=== PATIENT | female | born 1960 | race Caucasian/White ===

== ENCOUNTER 2017-04-11 15:39 | Observation (INO) ==
[2017-04-11] MEDS ORDERED: Albuterol 2.5 MG/3 ML NEBULIZER IH ONE (15:52)
[2017-04-11] MEDS ORDERED: methylPREDNISolone 125 MG/2 ML VIAL IVP ONE (15:52)
[2017-04-11] MEDS ORDERED: Ipratropium/Albuterol Neb 3 ML IH ONE (15:52)
--- NOTE | 2017-04-11 15:56 | Emergency Department Note ---
Disposition Clinical Impression: COPD exacerbation Pneumonia Qualifiers: Pneumonia type: due to unspecified organism Laterality: left Lung location: lower lobe of lung Qualified Code(s): J18.1 - Lobar pneumonia, unspecified organism Disposition: Admitted As Inpatient Condition: Good Referrals: Jack Marley DO [Primary Care Provider] - Forms: ED Satisfaction Letter Time of Disposition: 18:13 SOB HPI - General Chief Complaint: ED Shortness of Breath/Dyspnea Stated Complaint: SOB Time Seen by Provider: 04/11/17 15:50 Source: patient Mode of arrival: wheelchair Limitations: no limitations Nursing Notes Reviewed: Yes Vital Signs Reviewed: Yes - History of Present Illness 57-year-old white female with a one-week history of increasing weakness and difficulty breathing. She has some aching in her low back. She has a dry nonproductive cough. She has felt feverish and chilled at home, but not documented. Her liters of oxygen at home. She uses a nebulizer, and last used it at 7:30 this morning. She went to her primary care physician's office who sent her over here for evaluation. She states she was documented as having a fever and her primary care physician's office, she does not know what her temperature was. Pt Subjective Complaint: shortness of breath, cough Onset (ago): week(s) (1) Context: recent illness Severity: moderate Consistency/Duration: constant Improves with: oxygen, rest Worsens with: lying flat, movement, coughing Known history of: COPD Associated symptoms: Reports: fever, cough, wheezing, nausea/vomiting (Nausea, no vomiting.), other (Headache). Denies: sputum production Treatment prior to arrival: oxygen, bronchodilator Cough present: Yes Cough Description: Involuntary Cough Frequency: Intermittent Sputum production: No - Related Data Home oxygen amount: 3 liters Home Medications Medication Instructions Recorded Confirmed Aspirin [Lo-Dose Aspirin EC] 81 mg PO DAILY 04/11/17 04/11/17 Atorvastatin [Lipitor] 40 mg PO HS 04/11/17 04/11/17 Gabapentin [Neurontin] 1,000 mg PO TID 04/11/17 04/11/17 Glimepiride [Amaryl] 4 mg PO BID 04/11/17 04/11/17 Metformin HCl [Metformin HCl ER] 1,000 mg PO BID 04/11/17 04/11/17 Allergies Allergy/AdvReac Type Severity Reaction Status Date / Time No Known Allergies Allergy Verified 04/11/17 15:43 All systems ED: reviewed and negative except as stated. Constitutional: Reports: fever, chills Eyes: Denies: eye discharge ENT ED: Denies: ear pain, throat pain Cardiovascular: Reports: chest pain (With coughing.). Denies: palpitations Respiratory: Reports: cough, dyspnea, wheezes. Denies: sputum production Gastrointestinal: Denies: abdominal pain, nausea, vomiting, diarrhea Genitourinary: Denies: urgency, dysuria, frequency Musculoskeletal: Reports: back pain (Low back bilaterally) Neurological: Reports: headache. Denies: weakness, numbness, paresthesias Past Medical History - Past Medical History Medical history: Reports: COPD, diabetes, GI bleed, hypertension Psychiatric history: Reports: no psych history - Social History Smoking Status: Former smoker Smokeless Tobacco Status: No Alcohol use: Reports: none Drug use: Reports: none Physical Exam - General Limitations: no limitations General appearance: alert, in no apparent distress - Head Head exam: atraumatic, normocephalic - Eye Eye exam: Present: PERRL, EOMI. Absent: scleral icterus, conjunctival injection - ENT ENT exam: normal oropharynx, mucous membranes moist, TM's normal bilaterally - Neck Neck exam: Present: normal inspection, full ROM, trachea midline. Absent: tenderness, lymphadenopathy - Respiratory Respiratory exam: Present: wheezes (Mild bilateral expiratory), prolonged expiratory phase, other (Decreased breath sounds in the bases and mid lung alonzo bilaterally). Absent: respiratory distress, accessory muscle use - Cardiovascular Cardiovascular exam: Present: regular rate, tachycardia. Absent: systolic murmur, diastolic murmur, gallop - Abdominal Exam Abdominal exam: Present: soft, Non-Tender, normal bowel sounds. Absent: organomegaly, mass - Extremities Exam Extremities exam: Present: normal inspection, full ROM, normal capillary refill. Absent: pedal edema, calf tenderness - Neurological Exam Neurological exam: Present: alert, oriented X3. Absent: motor sensory deficit - Psychiatric Psychiatric exam: Present: normal affect, normal mood - Skin Skin exam: Present: warm, dry, intact, normal color. Absent: cyanosis, diaphoresis Course - Reevaluation(s) Reevaluation #1: Discussed with Dr. Newberry. He accepts the patient for admission. Time: 18:13 Vital Signs Temperature 101.8 F H 04/11/17 15:44 Pulse Rate 114 04/11/17 15:44 Respiratory Rate 20 04/11/17 15:44 Blood Pressure 121/71 04/11/17 15:44 O2 Sat by Pulse Oximetry 91 04/11/17 15:44 Temperature 101.8 F H 04/11/17 15:44 Pulse Rate 108 04/11/17 17:10 Respiratory Rate 18 04/11/17 17:10 Blood Pressure 120/66 04/11/17 17:10 O2 Sat by Pulse Oximetry 90 04/11/17 17:10 Oxygen Delivery Oxygen Delivery Nasal Cannula Shortness of Breath/Dyspnea - [facility] Narrative Medical decision making narrative: Radiographically she has some left basilar changes which would be consistent with pneumonia based on her history of fever, cough, difficulty breathing. Blood cultures are been obtained. Her lactic acid is not elevated. IV Rocephin and azithromycin have been ordered. Her O2 saturations are around 90% on 3 L. She will require hospitalization. I will page Dr. Newberry and speak with him regarding the admission. - Differential Diagnosis Likely: acute exacerbation of chronic obstructive airways disease, congestive heart failure, pneumonia, asthma with exacerbation, pneumothorax, arrhythmia - Lab Data Lab results reviewed: Yes I reviewed the patient's lab results. Result diagrams: 04/11/17 16:20 04/11/17 16:20 Lab Results 04/11/17 04/11/17 04/11/17 Range/Units 16:20 16:20 16:20 WBC 9.6 (4.3-11.1) K/mcL RBC 4.35 (3.82-4.97) M/mcL Hgb 11.8 (11.5-15.4) g/dL Hct 39.7 (35.3-44.9) % MCV 91.3 (83.0-100.0) fL MCH 27.1 L (28.0-33.3) pg MCHC 29.7 L (31.6-35.5) g/dL RDW 17.6 H (11.5-14.5) % Plt Count 232 (140-400) K/mcL MPV 10.1 (9.4-12.4) fL Immature Gran % 0.7 (0-4) % Seg Neutrophils % 80.9 % Lymphocytes % 8.3 % Monocytes % 9.6 % Eosinophils % 0.1 % Basophils % 0.4 % Neutrophils # 7.8 (1.6-8.9) K/mcL Lymphocytes # 0.8 (0.6-4.6) K/mcL Monocytes # 0.9 (0.0-1.3) K/mcL Eosinophils # 0.0 (0.0-0.6) K/mcL Basophils # 0.0 (0.0-0.2) K/mcL VBG Lactic Acid (0.5-2.2) mmol/L Sodium 138 (136-145) mEq/L Potassium 4.0 (3.5-4.5) mEq/L Chloride 98 (98-109) mEq/L Carbon Dioxide 28 (19-29) mEq/L BUN 15 (7-20) mg/dL Creatinine 0.78 (0.57-1.11) mg/dL Est GFR ( Amer) > 60 (> 60) Est GFR (Non-Af Amer) > 60 (> 60) BUN/Creatinine Ratio 19 (6-26) Glucose 228 H (70-99) mg/dL Calculated Osmolality 294 (280-300) Calcium 9.0 (8.6-10.8) mg/dL Total Bilirubin 0.7 (0.2-1.2) mg/dL AST 22 (5-34) Units/L ALT 25 (0-55) Units/L Alkaline Phosphatase 113 (38-126) Units/L Troponin I 0.01 (0-0.03) ng/mL B-Natriuretic Peptide (0-100) pg/mL Serum Total Protein 7.2 (6.0-8.3) g/dL Albumin 3.1 L (3.5-5.0) g/dL Globulin 4.1 H (2.4-3.5) g/dL Albumin/Globulin Ratio 0.8 L (1.1-2.2) 04/11/17 04/11/17 Range/Units 16:20 17:03 WBC (4.3-11.1) K/mcL RBC (3.82-4.97) M/mcL Hgb (11.5-15.4) g/dL Hct (35.3-44.9) % MCV (83.0-100.0) fL MCH (28.0-33.3) pg MCHC (31.6-35.5) g/dL RDW (11.5-14.5) % Plt Count (140-400) K/mcL MPV (9.4-12.4) fL Immature Gran % (0-4) % Seg Neutrophils % % Lymphocytes % % Monocytes % % Eosinophils % % Basophils % % Neutrophils # (1.6-8.9) K/mcL Lymphocytes # (0.6-4.6) K/mcL Monocytes # (0.0-1.3) K/mcL Eosinophils # (0.0-0.6) K/mcL Basophils # (0.0-0.2) K/mcL VBG Lactic Acid 1.2 (0.5-2.2) mmol/L Sodium (136-145) mEq/L Potassium (3.5-4.5) mEq/L Chloride (98-109) mEq/L Carbon Dioxide (19-29) mEq/L BUN (7-20) mg/dL Creatinine (0.57-1.11) mg/dL Est GFR ( Amer) (> 60) Est GFR (Non-Af Amer) (> 60) BUN/Creatinine Ratio (6-26) Glucose (70-99) mg/dL Calculated Osmolality (280-300) Calcium (8.6-10.8) mg/dL Total Bilirubin (0.2-1.2) mg/dL AST (5-34) Units/L ALT (0-55) Units/L Alkaline Phosphatase (38-126) Units/L Troponin I (0-0.03) ng/mL B-Natriuretic Peptide 31 (0-100) pg/mL Serum Total Protein (6.0-8.3) g/dL Albumin (3.5-5.0) g/dL Globulin (2.4-3.5) g/dL Albumin/Globulin Ratio (1.1-2.2) - Radiology Data Radiology results reviewed: Yes I reviewed the patient's radiology results. ITS Impressions Chest X-Ray 04/11/17 15:52 IMPRESSION: Limited examination. Left basilar opacity may be secondary to atelectasis, pneumonia, a pleural effusion or overlying soft tissue artifact. D/ / Marcio Nunn MD / Marcio Nunn MD Interpreting Provider: Marcio Nunn MD - EKG Data EKG attestation: Yes I reviewed and interpreted this EKG.
[2017-04-11 16:34] LABS: Basophils % 0.4 %; Eosinophils % 0.1 %; Hematocrit 39.7 % (35.3-44.9); Hemoglobin 11.8 g/dL (11.5-15.4); Immature Granulocytes % 0.7 % (0-4); Lymphocytes # 0.8 K/mcL (0.6-4.6); Lymphocytes % 8.3 %; Mean Corpuscular HGB Conc 29.7 g/dL (31.6-35.5); Mean Corpuscular Hemoglobin 27.1 pg (28.0-33.3); Mean Corpuscular Volume 91.3 fL (83.0-100.0); Mean Platelet Volume 10.1 fL (9.4-12.4); Monocytes # 0.9 K/mcL (0.0-1.3); Monocytes % 9.6 %; Neutrophils # 7.8 K/mcL (1.6-8.9); Platelet Count 232 K/mcL (140-400); Red Blood Count 4.35 M/mcL (3.82-4.97); Red Cell Distribution Width 17.6 % (11.5-14.5); Segmented Neutrophils % 80.9 %
[2017-04-11 16:53] LABS: Alanine Aminotransferase 25 Units/L (0-55); Albumin 3.1 g/dL (3.5-5.0); Albumin/Globulin Ratio 0.8 (1.1-2.2); Alkaline Phosphatase 113 Units/L (38-126); Aspartate Amino Transferase 22 Units/L (5-34); BUN/Creatinine Ratio 19 (6-26); Bilirubin,Total 0.7 mg/dL (0.2-1.2); Blood Urea Nitrogen 15 mg/dL (7-20); Carbon Dioxide 28 mEq/L (19-29); Chloride 98 mEq/L (98-109); Globulin 4.1 g/dL (2.4-3.5); Glucose 228 mg/dL (70-99); Osmolality,Calculated 294 (280-300); Sodium 138 mEq/L (136-145); Total Protein 7.2 g/dL (6.0-8.3); eGFR For African Americans > 60 (> 60); eGFR For Non-African Americans > 60 (> 60)
[2017-04-11] MEDS ORDERED: Azithromycin 500 MG in D5% in Water 250 ML IVPB ONE (17:38)
[2017-04-11] MEDS ORDERED: Naloxone 0.4 MG/ML INJ IVP PRN (20:27)
[2017-04-11] MEDS ORDERED: Dextrose Gel 15 GM PO PRN ×2 (20:28)
[2017-04-11] MEDS ORDERED: D5% in Water 1,000 ML IVC PRN (20:28)
[2017-04-11] MEDS ORDERED: *HR* Dextrose 50 % in Water (Syg) 50 ML SYRINGE IVP PRN (20:28)
[2017-04-11] MEDS ORDERED: NON-FORMULARY MEDICATION 1 EACH EACH (Metformin Hcl [Metformin Hcl Er] 1,000 MG) PO SCH (21:00)
[2017-04-11] MEDS: Insulin LISPRO 300 UNITS/3 ML VIAL SQ SCH ×2 (21:31→21:33)
[2017-04-11] MEDS: Gabapentin 300 MG CAPSULE PO SCH (21:32)
[2017-04-11] MEDS: Ipratropium/Albuterol Neb 3 ML IH SCH ×2 (22:19→22:21)
[2017-04-11] MEDS: traMADol 50 MG TABLET PO SCH (22:51)
[2017-04-12] MEDS: methylPREDNISolone 125 MG/2 ML VIAL IVP SCH ×2 (01:13→09:32)
[2017-04-12] MEDS: Ipratropium/Albuterol Neb 3 ML IH SCH ×3 (03:50→11:20)
[2017-04-12] MEDS ORDERED: *HR* Glimepiride 2 MG TABLET PO SCH (07:30)
[2017-04-12] MEDS: Insulin LISPRO 300 UNITS/3 ML VIAL SQ SCH ×2 (07:38→12:26)
[2017-04-12] MEDS ORDERED: *HR* Metformin 500 MG TABLET PO SCH (08:00)
[2017-04-12] MEDS ORDERED: Aspirin Enteric Coated 81 MG Tablet PO SCH (09:00)
[2017-04-12] MEDS: Gabapentin 300 MG CAPSULE PO SCH (09:30)
[2017-04-12] MEDS: traMADol 50 MG TABLET PO SCH (09:31)
[2017-04-12 10:40] VITALS: BP 122/82
--- NOTE | 2017-04-12 12:40 | Internal Med History&Physical ---
Date of Encounter: 04/12/17 Time of Encounter: 12:10 Assessment and Plan (1) Pneumonia Current visit: Yes Status: Acute She has been started on Rocephin and Zithromax through emergency room. Solu- Medrol was also ordered. Qualifiers: Pneumonia type: due to unspecified organism Laterality: left Lung location: lower lobe of lung Qualified Code(s): J18.1 - Lobar pneumonia, unspecified organism (2) COPD exacerbation Current visit: Yes Status: Acute Pneumonia treatment as per above. She states her breathing is improved now. Internal Medicine - H&P: HPI Chief complaint: Dyspnea Admitted From: Home Plans for Post Hospital Care: Home History of present illness: Ms. Arvizu is a 57 year old female came to emergency room stating she had dyspnea with dry cough, headache and weakness increasing over the preceding 24- 48 hours. She was seen at her PCP office and was directed to come to emergency room. She was evaluated and felt to have exacerbation of COPD and was admitted to [facility] floor for ongoing care needs. She states she smoked from age [age]. She has a diagnosis COPD and wears oxygen at home 02/05. She has declined DEBBIE workup in the past. She states her breathing has improved and she feels back to her baseline and wishes to be discharged home. Past Med Surg Social Fam HX - Past Medical History Medical history: COPD, diabetes, GI bleed, hypertension Psychiatric history: no psych history - Past Surgical History Surgical History: - Social History Smoking Status: Former smoker Smokeless Tobacco Status: No Alcohol use: none Drug use: none Internal Medicine - H&P: Meds Aspirin 81 mg PO DAILY 04/11/17 [History] Atorvastatin [Lipitor] 80 mg PO HS 04/11/17 [History] Empagliflozin [Jardiance] 25 mg PO QAM 04/11/17 [History] Gabapentin [Neurontin] 600 mg PO TID 04/11/17 [History] Garcinia Cambogia 1 cap PO BID 04/11/17 [History] Glimepiride [Amaryl] 4 mg PO BID 04/11/17 [History] Losartan [Cozaar] 50 mg PO DAILY 04/11/17 [History] Ondansetron [Zofran] 8 mg PO Q8HR 04/11/17 [History] Saxagliptin HCl [Onglyza] 5 mg PO QAM 04/11/17 [History] Tramadol HCl [Ultram] 50 mg PO BID 04/11/17 [History] metFORMIN 1,000 mg PO BID 04/11/17 [History] Allergies No Known Allergies Allergy (Verified 04/11/17 15:43) All Systems PM: A 10-system review of systems was performed and is negative for pertinent findings except as documented above in the HPI. Review of systems: Gen.: She states her weight is been stable the past few months Cardiovascular: She has history of hypertension but does not take medication. She denies WI heart failure angina DVT or pulmonary embolus Respiratory: As per history of present illness GI: She denies disorders of her liver gallbladder or exocrine pancreas : She denies hematuria dysuria or kidney stones Neurologic: She denies large distribution strokes or seizures Endocrine: She was diagnosed with DM 2 approximate 2006. 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 She denies gout or other bone joint or muscle disorders. - Constitutional Vitals: Temp Pulse Resp BP Pulse Ox 97.6 F 80 17 122/82 93 04/12/17 10:39 04/12/17 10:39 04/12/17 11:23 04/12/17 10:39 04/12/17 11:23 Exam: Gen.: She is a well-developed overweight female who appears in no acute distress at present time HEENT: Head is atraumatic and normocephalic. Eyes: EOMI. There is no scleral icterus. Mouth: Mucosa is moist. Neck: Supple and nontender. There is no thyromegaly or adenopathy noted. Heart: Regular without murmurs gallops or ectopics Lungs: No wheezes or crackles are heard. Abdomen: Soft and nontender. No masses or guarding are noted. Extremities: There is no cyanosis edema or clubbing noted. Dorsalis pedis and posttibial pulses are 1-2 over 2 bilaterally. Neurologic: Mental status: She is talkative and a good historian. Cranial nerves: Smile is symmetric. Forehead wrinkles bilaterally. Tongue protrudes midline. EOMI. Motor: There is no pronator drift. Cerebellar: Finger to nose is intact bilaterally. Skin: Warm and dry Internal Med - H&P Results - Labs CBC & Chem 7: 04/11/17 16:20 04/11/17 16:20
--- NOTE | 2017-04-12 12:56 | Discharge Summary ---
Date of Encounter: 04/12/17 Time of Encounter: 12:10 - Discharge Diagnosis (1) Pneumonia Priority: Primary Status: Acute Qualifiers: Pneumonia type: due to unspecified organism Laterality: left Lung location: lower lobe of lung Qualified Code(s): J18.1 - Lobar pneumonia, unspecified organism (2) COPD exacerbation Priority: Secondary Status: Acute - Discharge Medications Prescriptions: Cefuroxime PO [Ceftin] 500 mg PO Q12HR #6 tablet Azithromycin [Zithromax] 250 mg PO DAILY #3 tablet Lactobacillus [Culturelle] 1 each PO BID #6 cap.sprink Home Medications: Aspirin 81 mg PO DAILY 04/11/17 [History] Atorvastatin [Lipitor] 80 mg PO HS 04/11/17 [History] Empagliflozin [Jardiance] 25 mg PO QAM 04/11/17 [History] Gabapentin [Neurontin] 600 mg PO TID 04/11/17 [History] Garcinia Cambogia 1 cap PO BID 04/11/17 [History] Glimepiride [Amaryl] 4 mg PO BID 04/11/17 [History] Losartan [Cozaar] 50 mg PO DAILY 04/11/17 [History] Ondansetron [Zofran] 8 mg PO Q8HR 04/11/17 [History] Saxagliptin HCl [Onglyza] 5 mg PO QAM 04/11/17 [History] Tramadol HCl [Ultram] 50 mg PO BID 04/11/17 [History] metFORMIN 1,000 mg PO BID 04/11/17 [History] Azithromycin [Zithromax] 250 mg PO DAILY #3 tablet 04/12/17 [Rx] Cefuroxime PO [Ceftin] 500 mg PO Q12HR #6 tablet 04/12/17 [Rx] Lactobacillus [Culturelle] 1 each PO BID #6 cap.sprink 04/12/17 [Rx] Allergies/Adverse Reactions: Allergies No Known Allergies Allergy (Verified 04/11/17 15:43) Date of admission: 04/11/17 18:46 Primary care physician: Jack Marley DO Consults: 04/11/17 23:06 Consult to Nutrition [CONS] Routine Comment: Consulting Provider: NUTRITION Reason for Dietary Consult: MST Score - Patient Status Disposition: Home, Self-Care Condition: Good Functional capacity at discharge: independent ambulation Overall status at discharge: patient is progressing back to baseline - Discharge Instructions Follow Up With: Jack Marley DO [Primary Care Provider] - 1 week - Diet and Activity Activity: resume usual activities as tolerated Diet: advance to your usual diet Hospital course: Ms. Arvizu is a 57 year old female who came to emergency room stating she had dyspnea with dry cough, headache and weakness increasing over the preceding 24- 48 hours. She was seen at her PCP office and was directed to come to emergency room. She was evaluated and felt to have exacerbation of COPD and was admitted to [facility] for ongoing care needs. Initial orders written by the emergency room physician. I saw her on April 12 and performed the history physical discharge. Maintained afebrile during her hospital stay. When I saw her she felt back to baseline and wished to be discharged home which I felt was Fidel. She will follow with her PCP within one week. She will continue with antibiotic probiotic for 3 additional days at discharge. - Time Spent with Patient Total time spent providing and/or coordinating discharge services: - Constitutional Vitals: Temp Pulse Resp BP Pulse Ox 97.6 F 80 17 122/82 93 04/12/17 10:39 04/12/17 10:39 04/12/17 11:23 04/12/17 10:39 04/12/17 11:23
[2017-04-12] MEDS ORDERED: Azithromycin 500 MG in D5% in Water 250 ML IVPB SCH (19:00)
--- NOTE | 2017-04-13 14:16 | Electrocardiograph Report ---
[address] [place], [place] [address] Test Date: 2017-04-11 Pat Name: Sandi Arvizu Department: [id number] Room: [facility] Gender: F [place] Applier: Lucian : 1960 Requested By: Antoni Leal Order Number: [id number] Reading MD: Castro Morales MD Measurements Intervals [place] Rate: 116 P: 55 TN: 156 QRS: 79 QRSD: 133 T: 38 QT: 325 QTc: 394 Interpretive Statements SINUS TACHYCARDIA LEFT ATRIAL ENLARGEMENT INTRAVENTRICULAR CONDUCTION DELAY INFERIOR MYOCARDIAL INFARCTION, PROBABLY OLD Electronically Signed On 04-13-2017 14:14:24 EDT by Castro Morales MD
== END 2017-04-12 13:34 | disposition home or self-care (01) ==
LOC: EMEROOPIK 15:39 → INPPIK 15:39
PROVIDERS: ADMIT Internal Medicine; ATTEND Internal Medicine